=== PATIENT | male | born 2000 | race Two or more races ===

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

== ENCOUNTER 2019-07-14 08:57 | Outpatient (CLI) | payer OTHER | END 2019-07-14 15:00 | disposition home or self-care (01) | LOC: LAB 08:57 | DX: J20.0 Acute bronchitis due to Mycoplasma pneumoniae (principal) ==